=== PATIENT | female | born 1985 | race Caucasian/White ===

== ENCOUNTER 2017-04-10 03:02 | Inpatient (IN) | payer OTHER ==
[~2017-04-10] VITALS: Ht 165.1 cm; Wt 73.9 kg
[~2017-04-10 03:02] MED LIST: FOLI1TAB15 PO; ONDA4 PO; ONDA4SOL2 PO; ONDA4TAB7 PO; PREN1TAB80 PO
[2017-04-10] MEDS ORDERED: OXYTOCIN 30 UNITS/LACT RINGERS 500 ML IV ONE ×3 (03:13→04:48)
[2017-04-10] MEDS ORDERED: RINGERS SOLUTION,LACTATED 1,000 ML IV PRN (03:13)
[2017-04-10] MEDS ORDERED: CITRIC ACID/SODIUM CITRATE 30 ML SOLUTION UDCUP PO PRN (03:15)
[2017-04-10] MEDS ORDERED: METOCLOPRAMIDE HCL 5 MG/ML 2 ML VIAL IVP PRN (03:15)
[2017-04-10] MEDS ORDERED: FentaNYL CITRATE-PF 100 MCG/2 ML VIAL IVP PRN (03:15)
[2017-04-10] MEDS ORDERED: RINGERS SOLUTION,LACTATED 1,000 ML IV ONE (03:18)
[2017-04-10] MEDS: RINGERS SOLUTION,LACTATED 1,000 ML IV SCH ×2 (03:29→10:31)
[2017-04-10 03:46] VITALS: BP 139/63
[2017-04-10 03:48] LABS: BASOPHILS # (AUTO) 0.01 K/uL (0.00-0.20); BASOPHILS % (AUTO) 0.1 % (0.0-2.0); EOSINOPHILS % (AUTO) 0.03 % (1.0-6.0); HEMATOCRIT 35.2 % (36-46); HEMOGLOBIN 11.8 g/dL (12.0-16.0); LYMPHOCYTES # (AUTO) 1.1 K/uL (1.0-4.8); LYMPHOCYTES % (AUTO) 8.5 % (22.0-44.0); MEAN CORPUSCULAR HEMOGLOBIN 30.5 pg (26.0-34.0); MEAN CORPUSCULAR HGB CONC 33.6 G/dL (31.0-37.0); MEAN CORPUSCULAR VOLUME 91 fL (80-100); MONOCYTES # (AUTO) 0.1 K/uL (0.1-1.0); MONOCYTES % (AUTO) 0.9 % (2.0-9.0); NEUTROPHILS # (AUTO) 12.1 K/uL (1.8-7.7); PLATELET COUNT (AUTO)-OB 344 K/uL (150-450); RED BLOOD CELL COUNT(AUTO) 3.88 MIL/uL (4.00-5.20)
[2017-04-10 03:49] LABS: NEUTROPHILS % (AUTO) 90.5 % (40.0-70.0)
[2017-04-10] MEDS ORDERED: ROPIVACAINE HCL 0.2% 100 ML ED ONE (03:56)
[2017-04-10] MEDS ORDERED: LIDOCAINE HCL 2%/EPI 1:200,000/PF 20 ML VIAL ONE (03:56)
[2017-04-10] MEDS ORDERED: LIDOCAINE HCL/PF 1% 30 ML VIAL ONE (04:11)
[2017-04-10] MEDS ORDERED: GLYCERIN/WITCH HAZEL LEAF 40 PADS JAR TP PRN (05:00)
[2017-04-10] MEDS ORDERED: LIDOCAINE HCL/PF 1% 30 ML VIAL INJ PRN (05:00)
[2017-04-10] MEDS ORDERED: OxyCODONE HCL/ACETAMINOPHEN 5-325 MG TABLET PO PRN (05:00)
[2017-04-10] MEDS ORDERED: LANOLIN 7 GM OINTMENT TP PRN (05:00)
[2017-04-10] MEDS ORDERED: BENZOCAINE 20%/MENTHOL 56 GM SPRAY CANISTER TP PRN (05:00)
[2017-04-10] MEDS ORDERED: ONDANSETRON HCL 4 MG/2 ML VIAL IVP ONE ×2 (05:15→10:15)
[2017-04-10] MEDS: OxyCODONE HCL/ACETAMINOPHEN 5-325 MG TABLET PO PRN ×2 (05:58→22:25)
[2017-04-10] MEDS: IBUPROFEN 800 MG TABLET PO PRN ×3 (05:58→18:58)
[2017-04-10] MEDS ORDERED: OXYGEN THERAPY IH SCH (08:00)
[2017-04-10] MEDS: MAGNESIUM HYDROXIDE SUSPENSION 30 ML UDCUP PO PRN ×2 (09:04→21:08)
[2017-04-11] MEDS: IBUPROFEN 800 MG TABLET PO PRN (04:20)
[2017-04-11 05:39] LABS: BASOPHILS # (AUTO) 0.08 K/uL (0.00-0.20); BASOPHILS % (AUTO) 0.6 % (0.0-2.0); EOSINOPHILS # (AUTO) 0.07 K/uL (0.00-0.70); EOSINOPHILS % (AUTO) 0.55 % (1.0-6.0); HEMATOCRIT 29.3 % (36-46); HEMOGLOBIN 9.8 g/dL (12.0-16.0); LYMPHOCYTES # (AUTO) 3.3 K/uL (1.0-4.8); LYMPHOCYTES % (AUTO) 26.3 % (22.0-44.0); MEAN CORPUSCULAR HGB CONC 33.7 G/dL (31.0-37.0); MEAN CORPUSCULAR VOLUME 92 fL (80-100); MONOCYTES # (AUTO) 0.7 K/uL (0.1-1.0); MONOCYTES % (AUTO) 5.3 % (2.0-9.0); NEUTROPHILS # (AUTO) 8.4 K/uL (1.8-7.7); NEUTROPHILS % (AUTO) 67.3 % (40.0-70.0); PLATELET COUNT (AUTO)-OB 313 K/uL (150-450); RED BLOOD CELL COUNT(AUTO) 3.18 MIL/uL (4.00-5.20); RED CELL DISTRIBUTION WIDTH 19.2 % (11.5-14.5)
[2017-04-11] MEDS: OxyCODONE HCL/ACETAMINOPHEN 5-325 MG TABLET PO PRN (08:05)
[2017-04-11] MEDS: MAGNESIUM HYDROXIDE SUSPENSION 30 ML UDCUP PO PRN (09:04)
[2017-04-11] MEDS ORDERED: IBUP-2071 PO (10:27)
== END 2017-04-11 13:00 | disposition home or self-care (01) | DRG 775 ==
LOC: 4S 03:02 → PREOBSVTOIN 05-09 03:13
PROVIDERS: ADMIT Obstetrics & Gynecology; ATTEND Obstetrics & Gynecology
PROC: 10D07Z6 Extraction of Products of Conception, Vacuum, Via Natural or Artificial Opening (ICD-10-PCS; principal; 2017-04-10)
PROC: 0KQM0ZZ Repair Perineum Muscle, Open Approach (ICD-10-PCS; 2017-04-10)
DX: O70.1 Second degree perineal laceration during delivery (principal); Z37.0 Single live birth; Z3A.39 39 weeks gestation of pregnancy
CPT/HCPCS: 86850; 86900; 86901; J2405; J2590; J2795; J3490; J7120